=== PATIENT | female | born 1950 | race Caucasian/White ===

== ENCOUNTER → 2016-12-08 | Outpatient (CLI) | payer MEDICARE ==
[~2016-12-08] MED LIST: ANAS1TAB3 PO; ASCO500T29 PO; CALC-56 PO; CHOL500015 PO; ENZY1CAP PO; LACT1CAP35 PO; LIOT1POW PO; MINERALS PO; OMEG500C PO; UBID100C11 PO; VITA1CAP PO; VITA400C43 PO; VITA40TA PO; [UNRECOGNIZED DRUG - CODE] PO; aspirin PO
== END | disposition home or self-care (01) ==
LOC: CFH 12:05
PROVIDERS: ATTEND Internal Medicine Nephrology
DX: N18.2 Chronic kidney disease, stage 2 (mild) (principal); N20.0 Calculus of kidney; N28.1 Cyst of kidney, acquired; N13.30 Unspecified hydronephrosis; R80.3 Bence Jones proteinuria; D63.1 Anemia in chronic kidney disease; M85.9 Disorder of bone density and structure, unspecified; Z85.118 Personal history of other malignant neoplasm of bronchus and lung; Z85.3 Personal history of malignant neoplasm of breast
CPT/HCPCS: 76770

== ENCOUNTER → 2017-02-17 | Outpatient (CLI) | payer MEDICARE ==
[~2017-02-17] MED LIST changes: +ASCO-90 PO; -ASCO500T29 PO; -UBID100C11 PO; +UBID100C41 PO
== END | disposition home or self-care (01) ==
LOC: CFH 10:33
PROVIDERS: ATTEND Internal Medicine Critical Care Medicine
DX: J90 Pleural effusion, not elsewhere classified (principal); J98.11 Atelectasis; M25.78 Osteophyte, vertebrae
CPT/HCPCS: 71020

== ENCOUNTER → 2017-04-22 | Outpatient (CLI) | payer MEDICARE, OTHER ==
[~2017-04-22] MED LIST changes: +OMNIPAQUE 350 MG/ML, 75ML BOTTLE ONE
== END | disposition home or self-care (01) ==
LOC: CFH 08:30
PROVIDERS: ATTEND Internal Medicine Hematology & Oncology
DX: C50.512 Malignant neoplasm of lower-outer quadrant of left female breast (principal); J84.10 Pulmonary fibrosis, unspecified; J98.11 Atelectasis; J18.9 Pneumonia, unspecified organism; Z98.890 Other specified postprocedural states
CPT/HCPCS: 71260; 82565; Q9967

== ENCOUNTER → 2017-07-13 | Outpatient (CLI) | payer MEDICARE, OTHER ==
[~2017-07-13] MED LIST changes: -OMNIPAQUE 350 MG/ML, 75ML BOTTLE ONE
== END | disposition home or self-care (01) ==
LOC: CFH 12:27
PROVIDERS: ATTEND Specialist
DX: C50.512 Malignant neoplasm of lower-outer quadrant of left female breast (principal); Z85.3 Personal history of malignant neoplasm of breast; Z92.3 Personal history of irradiation
CPT/HCPCS: 76642

== ENCOUNTER → 2017-09-07 | Outpatient (CLI) | payer MEDICARE | END | disposition home or self-care (01) | LOC: CFH 14:13 | PROVIDERS: ATTEND Specialist | DX: R92.2 Inconclusive mammogram (principal); C34.92 Malignant neoplasm of unspecified part of left bronchus or lung; Z85.3 Personal history of malignant neoplasm of breast | CPT/HCPCS: 76642 ==

== ENCOUNTER → 2017-10-22 | Outpatient (CLI) | payer MEDICARE ==
[~2017-10-22] MED LIST changes: +OMNIPAQUE 350 MG/ML, 75ML BOTTLE ONE
== END | disposition home or self-care (01) ==
LOC: CFH 12:39
PROVIDERS: ATTEND Specialist
DX: J98.4 Other disorders of lung (principal); C34.92 Malignant neoplasm of unspecified part of left bronchus or lung; C50.512 Malignant neoplasm of lower-outer quadrant of left female breast; Z85.3 Personal history of malignant neoplasm of breast
CPT/HCPCS: 71260; Q9967

== ENCOUNTER → 2018-02-19 | Outpatient (CLI) | payer MEDICARE ==
[~2018-02-19] MED LIST changes: -ANAS1TAB3 PO; +ANAS1TAB49 PO; -OMNIPAQUE 350 MG/ML, 75ML BOTTLE ONE
== END | disposition home or self-care (01) ==
LOC: CFH 10:53
PROVIDERS: ATTEND Internal Medicine
DX: M47.896 Other spondylosis, lumbar region (principal); M41.85 Other forms of scoliosis, thoracolumbar region; M79.605 Pain in left leg
CPT/HCPCS: 72100; 72170

== ENCOUNTER → 2018-04-12 | Outpatient (CLI) | payer MEDICARE | END | disposition home or self-care (01) | LOC: CFH 12:13 | PROVIDERS: ATTEND Specialist | DX: Z13.820 Encounter for screening for osteoporosis (principal); M85.88 Other specified disorders of bone density and structure, other site; C50.512 Malignant neoplasm of lower-outer quadrant of left female breast; C34.92 Malignant neoplasm of unspecified part of left bronchus or lung; Z79.811 Long term (current) use of aromatase inhibitors | CPT/HCPCS: 77080 ==

== ENCOUNTER → 2018-09-28 | Outpatient (CLI) | payer MEDICARE | END | disposition home or self-care (01) | LOC: CFH 07:36 | PROVIDERS: ATTEND Internal Medicine | DX: C50.512 Malignant neoplasm of lower-outer quadrant of left female breast (principal) | CPT/HCPCS: 76641; 77066; G0279 ==

== ENCOUNTER 2018-10-19 09:27 | Outpatient (CLI) | payer MEDICARE ==
[2018-10-19] MEDS ORDERED: OMNIPAQUE 350 MG/ML, 75ML BOTTLE ONE (15:14)
== END 2018-10-19 23:59 | disposition home or self-care (01) ==
LOC: CFH 09:27
PROVIDERS: ATTEND Internal Medicine
DX: C34.92 Malignant neoplasm of unspecified part of left bronchus or lung (principal); C50.512 Malignant neoplasm of lower-outer quadrant of left female breast; Z79.811 Long term (current) use of aromatase inhibitors
CPT/HCPCS: 71260; 82565; Q9967

== ENCOUNTER → 2019-09-15 | Outpatient (CLI) | payer MEDICARE | END | disposition home or self-care (01) | LOC: CFH 06:54 | PROVIDERS: ATTEND Internal Medicine Cardiovascular Disease | DX: I08.0 Rheumatic disorders of both mitral and aortic valves (principal); Z85.3 Personal history of malignant neoplasm of breast; Z85.118 Personal history of other malignant neoplasm of bronchus and lung | CPT/HCPCS: 93306 ==

== ENCOUNTER → 2019-10-18 | Outpatient (CLI) | payer MEDICARE | END | disposition home or self-care (01) | LOC: CFH 09:20 | PROVIDERS: ATTEND Internal Medicine | DX: J43.9 Emphysema, unspecified (principal) | CPT/HCPCS: 71250; 76641; 77066; G0279 ==

== ENCOUNTER → 2020-05-14 | Outpatient (CLI) | payer MEDICARE | END | disposition home or self-care (01) | LOC: CFH 10:06 | PROVIDERS: ATTEND Obstetrics & Gynecology | DX: Z13.820 Encounter for screening for osteoporosis (principal); M81.0 Age-related osteoporosis without current pathological fracture | CPT/HCPCS: 77080 ==

== ENCOUNTER → 2020-10-09 | Outpatient (CLI) | payer MEDICARE ==
[~2020-10-09] MED LIST changes: +OMNIPAQUE 350 MG/ML, 75ML BOTTLE ONE
== END | disposition home or self-care (01) ==
LOC: CFH 13:39
PROVIDERS: ATTEND Internal Medicine
DX: C34.90 Malignant neoplasm of unspecified part of unspecified bronchus or lung (principal)
CPT/HCPCS: 71260; 82565; Q9967

== ENCOUNTER → 2020-10-23 | Outpatient (CLI) | payer MEDICARE ==
[~2020-10-23] MED LIST changes: -OMNIPAQUE 350 MG/ML, 75ML BOTTLE ONE
== END | disposition home or self-care (01) ==
LOC: CFH 10:27
PROVIDERS: ATTEND Internal Medicine
DX: Z12.31 Encounter for screening mammogram for malignant neoplasm of breast (principal); C50.512 Malignant neoplasm of lower-outer quadrant of left female breast; C34.92 Malignant neoplasm of unspecified part of left bronchus or lung; Z79.811 Long term (current) use of aromatase inhibitors
CPT/HCPCS: 76641; 77063; 77067